=== PATIENT | male | born 1950 ===

== ENCOUNTER → 2016-09-06 | Outpatient (CLI) | payer MEDICARE, OTHER | END | disposition disaster alternative care site (69) | LOC: LCNC 14:51 | DX: R53.83 Other fatigue (principal) ==

== ENCOUNTER → 2016-10-14 | Outpatient (CLI) | payer MEDICARE, OTHER | LOC: LCNC 08:45 | DX: R53.83 Other fatigue (principal); E78.2 Mixed hyperlipidemia ==